=== PATIENT | male | born 1950 | race Caucasian/White ===

== ENCOUNTER 2016-08-23 17:50 | Emergency (ER) | payer MEDICARE, OTHER ==
[2016-08-23 17:59] VITALS: BP 151/93
[2016-08-23] MEDS ORDERED: Bacitracin Oint 1 GM U/D Packet TOP ONE (18:17)
[2016-08-23] MEDS ORDERED: Acetaminophen/oxyCODONE 325-5 MG Tab PO ONE (19:29)
[2016-08-23] MEDS ORDERED: HYDROmorphone 1 MG/ML Syringe IVPUSH ONE (19:35)
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
--- NOTE | 2016-08-24 11:21 | CR ---
Clavicle Lt INDICATION: trauma FINDINGS: Acute, mildly comminuted, mildly overlapping fracture through the mid left clavicle. Hyper trophic change left AC joint.
--- NOTE | 2016-08-24 11:22 | CR ---
Chest 2V INDICATION: trauma FINDINGS: Acute fracture mid left clavicle. Heart size normal. Mild scarring in the left lung apex. Probable old left lateral rib fractures versus superimposition of shadows of the left scapula. Hyper trophic changes thoracic spine. Exam otherwise negative.
== END 2016-08-23 21:11 | disposition home or self-care (01) ==
LOC: JP.ED 17:50
DX: S42.022A Displaced fracture of shaft of left clavicle, initial encounter for closed fracture (principal); S22.069A Unspecified fracture of T7-T8 vertebra, initial encounter for closed fracture; V29.40XA Motorcycle driver injured in collision with unspecified motor vehicles in traffic accident, initial encounter; Z79.899 Other long term (current) drug therapy; Z90.49 Acquired absence of other specified parts of digestive tract
CPT/HCPCS: 71020; 73000; 96374; 99284; J1170; 99283